=== PATIENT | female | born 1980 | race Caucasian/White ===

== ENCOUNTER → 2016-05-01 14:34 | Outpatient (CLI) | payer BC ==
[2015-09-19 05:58] VITALS: BMI 23.1
[~2016-05-01 14:34] MED LIST: CYCLOBENZAPRINE10 MG PO; FERROUS GLUCON324 MG PO; FERROUS SULFAT325 MG PO; NORCO 10/325 TA1 TA1 PO; PERCOCET 10/3251 TA1 PO; PHENERGAN25 M1 PO; PLAQUENIL200 MG PO; PREDNISONE5 MG PO; PROBIOTIC1 EAC1 PO; PROVERA2.5 MG PO; SENOKOT-S TABLE1 TAB PO; SYNTHROID50 MCG PO; VITAMIN D5000 UNIT; ZANTAC150 MG PO; ZOLOFT50 MG PO
[2016-05-06 03:06] LABS: OVA + PARASITE EXAM Final report (())
== END | disposition home or self-care (01) ==
LOC: D.LABREF 14:34
PROVIDERS: Surgery
DX: R19.7 Diarrhea, unspecified (principal)

== ENCOUNTER → 2016-06-11 12:33 | Outpatient (CLI) | payer BC ==
[2015-09-19 05:58] VITALS: BMI 23.1
== END | disposition home or self-care (01) ==
LOC: D.NM 12:33
DX: R10.9 Unspecified abdominal pain (principal); R11.0 Nausea

== ENCOUNTER 2016-06-18 05:51 | Day surgery (SDC) | payer BC ==
[~2016-06-18] VITALS: Ht 168.9 cm; Wt 63.5 kg
--- NOTE | ~2016-06-18 | OP ---
PATIENT NAME: DANIELA MEADE MEDICAL RECORD: [id number] :78 LOCATION:D.OPS ADMISSION DATE: SURGEON: VEELIO MEADE MD DATE OF OPERATION: 06/18/2016 PREOPERATIVE DIAGNOSES: 1. Biliary dyskinesia. 2. Mixed connective tissue disorder. 3. Vitamin D deficiency. 4. Hypothyroidism. POSTOPERATIVE DIAGNOSES: 1. Biliary dyskinesia. 2. Mixed connective tissue disorder. 3. Vitamin D deficiency. 4. Hypothyroidism. PROCEDURE: Single incision laparoscopic cholecystectomy. SURGEON: Evelio Meade MD. REPORT OF PROCEDURE: The patient's abdomen was prepped and draped in sterile fashion. A cutdown was made through the patient's umbilicus. Electrocautery was used to dissect through the subcutaneous tissues and fascia and I bluntly entered the abdominal cavity. Once inside, then an SILS port was inserted and the abdomen was insufflated. The gallbladder was grasped and elevated. There was no sign of inflammatory changes. The cystic duct was dissected free and this was clipped proximally and distally and ligated in standard fashion. The patient had some small vascular structures, but no large arterial structures. A couple of small vascular structures were clipped proximally and distally and ligated. The gallbladder was then taken off the liver bed using electrocautery. We irrigated out the right upper quadrant and assured there was no sign of any bleeding or bile leakage. At this point, we inspected the abdomen and saw no signs of any masses or lesions and no sign of any inflammatory changes. At this point, the gallbladder was removed. The midline fascia was closed with interrupted 0 Vicryls times. The wounds were then irrigated out with normal saline and infused with 10 mL of 0.25% Marcaine plain. The skin incisions were all closed with subcutaneous 5-0 Monocryl and dressed appropriately. COMPLICATIONS: None. CONDITION: Stable. ANESTHESIA: General endotracheal and local. BLOOD LOSS: Minimal. TRANSINT:[id number] Voice Confirmation ID: [id number] DOCUMENT ID: [id number] OPERATIVE REPORT [id number] DANIELA MEADE EVELIO MEADE MD CC: CASEY DUNCAN MD [id number] DICTATION DATE: 06/18/16 0830 FIBERGLASS AUTO BODY REPAIRER: 06/18/16 1504 [facility] 06/18/16 [place] [address]
[~2016-06-18 05:51] MED LIST changes: -PHENERGAN25 M1 PO
[2016-06-18 06:54] VITALS: BP 111/76; Ht 168.9 cm; Wt 63.5 kg
[2016-06-18 06:59] LABS: HCG URINE NEGATIVE (NEGATIVE)
[2016-06-18 07:31] LABS: CALC OSMOLALITY 276 mosm/kg (275-300); CALCIUM 8.5 mg/dL (8.5-10.1); CARBON DIOXIDE 28.3 mmol/L (21.0-32.0); CHLORIDE - SERUM 103 mmol/L (98-107); CREATININE - SERUM 0.8 mg/dL (0.6-1.3); GLUCOSE 85 mg/dL (74-106); POTASSIUM - SERUM 3.7 mmol/L (3.5-5.1); SODIUM 140 mmol/L (136-145); UREA NITROGEN 11 mg/dL (7-18); eGFR NON AFRICAN AMERICAN 85 mL/min (90-120)
[2016-06-18 07:36] LABS: HEMATOCRIT 36.4 % (36.0-48.0); HEMOGLOBIN 12.7 g/dL (12-16); MCH 29.9 pg (26.0-34.0); MCHC 34.9 g/dL (31.0-37.0); MCV 85.6 fL (80.0-100.0); PLATELET COUNT 158 10x3/uL (130-400); RBC 4.25 10x6/uL (4.00-5.40); RDW 13.1 % (11.5-14.5); WBC 7.5 10x3/uL (4.8-10.8)
--- NOTE | 2016-06-18 08:59 | NUR ---
THE PATIENT REQUESTED TO RETURN TO OUTPATIENT
[2016-06-18] MEDS ORDERED: PHENERGAN25 M1 PO (09:01)
--- NOTE | 2016-06-18 12:15 | NUR ---
1150 AWAKE TALKING WITH FAMILY & FRIENDS. TAKING SIPS OF [place] AT THIS TIME. DECLINES OFFER OF FULL LIQUID DIET @ THIS TIME. Riccardo ECHEVERRIA R.N.
--- NOTE | 2016-06-18 13:32 | NUR ---
1310 REQUESTS DISCHARGE. STATES HAS VOIDED. IV COMPLETED & DC'ED WTIH CATH INTACT. Riccardo ECHEVERRIA R.N. 1320 DRESSED, AWAKE & ALERT. GIVEN DISCHARGE INFORMATION INCLUDING: MED REC, [facility] CHOLECYSTCTOMY [place], & OP D/C INSTRUCTIONS. PT VOICED UNDERSTANDING. TO PRIVATE CAR PER WHEELCHAIR BY THIS NURSE. HOME WITH MRS. NATHALY SCHILLING. Riccardo ECHEVERRIA R.N.
== END 2016-06-18 13:20 | disposition home or self-care (01) ==
LOC: D.OPS 05:51 → D.PAN 07:30 → D.OPS 07:30
PROVIDERS: Surgery
DX: K82.8 Other specified diseases of gallbladder (principal); K21.9 Gastro-esophageal reflux disease without esophagitis; E03.9 Hypothyroidism, unspecified; E55.9 Vitamin D deficiency, unspecified

== ENCOUNTER → 2016-10-04 10:25 | Outpatient (CLI) | payer BC ==
[2016-06-18 06:54] VITALS: BMI 22.3
[~2016-10-04 10:25] MED LIST changes: +PHENERGAN25 M1 PO
== END | disposition home or self-care (01) ==
LOC: D.LAB 10:25
DX: K21.9 Gastro-esophageal reflux disease without esophagitis (principal); K82.8 Other specified diseases of gallbladder; R10.9 Unspecified abdominal pain; R19.7 Diarrhea, unspecified

== ENCOUNTER → 2016-11-22 10:54 | Outpatient (CLI) | payer BC ==
[2016-06-18 06:54] VITALS: BMI 22.3
== END | disposition home or self-care (01) ==
LOC: D.MRI 11-19 10:00
DX: M25.561 Pain in right knee (principal)

== ENCOUNTER → 2016-12-03 08:08 | Outpatient (CLI) | payer BC ==
[2016-06-18 06:54] VITALS: BMI 22.3
[2016-12-03 09:32] LABS: APPEARANCE CLEAR (CLEAR); BILIRUBIN NEGATIVE (NEGATIVE); COLOR YELLOW (YELLOW); GLUCOSE NEGATIVE (NEGATIVE); KETONE NEGATIVE (NEGATIVE); LEUKOCYTE ESTERASE NEGATIVE (NEGATIVE); NITRITE NEGATIVE (NEGATIVE); PROTEIN NEGATIVE (NEGATIVE); SPECIFIC GRAVITY 1.015 (1.005-1.020); UROBILINOGEN NORMAL (NORMAL)
[2016-12-03 09:38] LABS: BASOPHILS 0.8 % (0-2); HEMATOCRIT 37.6 % (36.0-48.0); IMMATURE GRANULOCYTES 0.3 % (0-5); LYMPHOCYTES 30.6 % (15-50); MCHC 34.6 g/dL (31.0-37.0); MCV 89.5 fL (80.0-100.0); MEAN PLATELET VOLUME 11.4 fL (7.4-10.4); MONOCYTES 8.9 % (2-11); NEUTROPHILS 56.4 % (40-80); PLATELET COUNT 181 10x3/uL (130-400); RDW 13.1 % (11.5-14.5); WBC 3.7 10x3/uL (4.8-10.8)
[2016-12-03 09:58] LABS: APTT 29.2 SECONDS (22.8-39.4); INR 1.03 (0.85-1.17); PROTIME 13.4 SECONDS (11.6-15.0)
[2016-12-03 10:34] LABS: ERYTHROCYTE SEDIMENTATION RATE 5 mm/hr (0-20)
== END | disposition home or self-care (01) ==
LOC: D.LAB 08:08
PROVIDERS: Internal Medicine Rheumatology
DX: R58 Hemorrhage, not elsewhere classified (principal); R53.82 Chronic fatigue, unspecified; M35.9 Systemic involvement of connective tissue, unspecified; M25.60 Stiffness of unspecified joint, not elsewhere classified; M25.9 Joint disorder, unspecified; D68.9 Coagulation defect, unspecified; M05.9 Rheumatoid arthritis with rheumatoid factor, unspecified

== ENCOUNTER → 2017-07-28 14:19 | Outpatient (CLI) | payer BC ==
[2016-06-18 06:54] VITALS: BMI 22.3
== END | disposition home or self-care (01) ==
LOC: D.MRI 11:00
DX: M25.422 Effusion, left elbow (principal)

== ENCOUNTER 2017-09-23 10:17 | Day surgery (SDC) | payer BC ==
[~2017-09-23] VITALS: Ht 168.9 cm; Wt 63.6 kg
--- NOTE | ~2017-09-23 | OP ---
PATIENT NAME: DANIELA MEADE MEDICAL RECORD: [id number] :78 LOCATION:[facility] ADMISSION DATE: SURGEON: RADHA DIEZ MD DATE OF OPERATION: 09/23/2017 REFERRING PHYSICIAN: Casey Duncan MD PROCEDURES: EGD with biopsy. INDICATIONS: Ms. Meade is a delightful 37-year-old woman with a history of lupus who has had recurrent symptoms of fullness in her upper esophagus/chest with she had been taking proton pump inhibitor and Zantac, and is now just taking Zantac with good control of her symptoms. She has had no associated nausea, vomiting, hematemesis, melena or hematochezia. She has a history of antral biopsies, were positive for presence of Helicobacter pylori, treated several times in the past, second time with sensitivities obtained for a thorough treatment. She presents for outpatient EGD. PREMEDICATIONS: Total IV anesthesia (propofol 300 mg, tranexamic acid 10 mg per kilogram IV) (history of YONATHAN-1 deficiency). PROCEDURE AND FINDINGS: After receiving informed consent, Ms. Meade's posterior pharynx was anesthetized with Cetacaine spray. She was placed in left lateral decubitus position and sedated as per anesthesia. After achieving an adequate level of sedation, gastroscope was introduced per orally and advanced into the duodenum without difficulty. The esophageal mucosa was without erythema, ulcers, strictures or masses. Biopsies were taken from the mid and distal esophagus to rule out eosinophilic esophagitis and evidence of reflux esophagitis. A small sliding type hiatal hernia was present. Gastric mucosa was notable for a small patch of erythema and the body of the stomach (biopsied) and mild diffuse erythema involving the antrum and antral biopsies were obtained. No lesions were seen along the incisura, the cardia, fundus. Pylorus was patent and competent. Duodenal mucosa was without erythema or ulcers, appeared normal through the second portion. Gastroscope was then withdrawn. Ms. Meade tolerated procedure well. No immediate complications. ASSESSMENT: 1. Small sliding type hiatal hernia. 2. Mild patchy gastritis. RECOMMENDATIONS: 1. Follow up histopathology. 2. Limit use of nonsteroidal anti-inflammatory drugs. 3. Continue ranitidine/Zantac 150 mg twice a day. TRANSINT:[id number] Voice Confirmation ID: [id number] DOCUMENT ID: [id number] OPERATIVE REPORT [id number] DANIELA MEADE TERRI MD at 1206 CC: CASEY DUNCAN [id number] DICTATION DATE: 09/23/17 1405 PELLET PREPARATION OPERATOR: 09/23/17 1435 [facility] 09/23/17 [place] [id number] [place] [id number]
[2017-09-23 10:45] LABS: BASOPHILS 0.3 % (0-2); HEMOGLOBIN 13.7 g/dL (12-16); LYMPHOCYTES 32.9 % (15-50); MCH 31.1 pg (26.0-34.0); MCHC 35.1 g/dL (31.0-37.0); MCV 88.6 fL (80.0-100.0); MEAN PLATELET VOLUME 10.6 fL (7.4-10.4); MONOCYTES 10.2 % (2-11); NEUTROPHILS 53.6 % (40-80); PLATELET COUNT 163 10x3/uL (130-400); RDW 12.4 % (11.5-14.5); WBC 3.6 10x3/uL (4.8-10.8)
[2017-09-23] MEDS ORDERED: JOLIVETTE0.35 MG PO (11:02)
[2017-09-23] MEDS ORDERED: ARMOUR THYROID30 MG PO (11:03)
[2017-09-23 11:10] VITALS: BP 116/72; Ht 168.9 cm; Wt 63.6 kg
[2017-09-23 12:38] LABS: HCG URINE NEGATIVE (NEGATIVE)
== END 2017-09-23 14:45 | disposition home or self-care (01) ==
LOC: D.OPS 10:17
PROVIDERS: Anesthesiology; Internal Medicine Gastroenterology
DX: K44.9 Diaphragmatic hernia without obstruction or gangrene (principal); K29.50 Unspecified chronic gastritis without bleeding; K21.0 Gastro-esophageal reflux disease with esophagitis; M32.9 Systemic lupus erythematosus, unspecified; Z01.812 Encounter for preprocedural laboratory examination

== ENCOUNTER → 2017-11-22 19:08 | Outpatient (CLI) | payer BC ==
[2017-09-23 11:10] VITALS: BMI 22.3
[~2017-11-22 19:08] MED LIST changes: +ARMOUR THYROID30 MG PO; +JOLIVETTE0.35 MG PO
[2017-11-22 19:21] LABS: BASOPHILS 0.3 % (0-2); EOSINOPHILS 0.7 % (0-7); HEMATOCRIT 37.8 % (36.0-48.0); HEMOGLOBIN 13.3 g/dL (12-16); IMMATURE GRANULOCYTES 0.3 % (0-5); LYMPHOCYTES 17.1 % (15-50); MCH 31.5 pg (26.0-34.0); MCHC 35.2 g/dL (31.0-37.0); MCV 89.6 fL (80.0-100.0); MONOCYTES 7.8 % (2-11); NEUTROPHILS 73.8 % (40-80); PLATELET COUNT 197 10x3/uL (130-400); RBC 4.22 10x6/uL (4.00-5.40); RDW 12.7 % (11.5-14.5); WBC 6.8 10x3/uL (4.8-10.8)
[2017-11-22 19:32] LABS: CALC OSMOLALITY 280 mosm/kg (275-300); CALCIUM 8.7 mg/dL (8.5-10.1); CARBON DIOXIDE 27.8 mmol/L (21.0-32.0); CHLORIDE - SERUM 103 mmol/L (98-107); CREATININE - SERUM 0.8 mg/dL (0.6-1.3); GLUCOSE 113 mg/dL (74-106); PHOSPHOROUS 3.7 mg/dL (2.5-4.9); POTASSIUM - SERUM 3.6 mmol/L (3.5-5.1); SODIUM 141 mmol/L (136-145); UREA NITROGEN 10 mg/dL (7-18); eGFR NON AFRICAN AMERICAN 85 mL/min (90-120)
== END | disposition home or self-care (01) ==
LOC: D.LABREF 19:08
PROVIDERS: Surgery
DX: R00.0 Tachycardia, unspecified (principal)

== ENCOUNTER → 2017-12-31 18:13 | Outpatient (CLI) | payer BC ==
[2017-09-23 11:10] VITALS: BMI 22.3
== END | disposition home or self-care (01) ==
LOC: D.MAMMO 11:30 → D.US 13:00 → D.MAMMO 18:13
DX: N64.4 Mastodynia (principal); R92.8 Other abnormal and inconclusive findings on diagnostic imaging of breast

== ENCOUNTER → 2018-03-18 07:01 | Outpatient (CLI) | payer BC ==
[2017-09-23 11:10] VITALS: BMI 22.3
== END | disposition home or self-care (01) ==
LOC: D.MRI 07:00
DX: M25.551 Pain in right hip (principal)

== ENCOUNTER 2018-07-06 08:00 | Outpatient (CLI) | payer BC ==
[2017-09-23 11:10] VITALS: BMI 22.3
== END 2018-07-06 09:00 | disposition home or self-care (01) ==
LOC: D.MAMMO 08:00
PROVIDERS: ATTEND Family Medicine
DX: D24.9 Benign neoplasm of unspecified breast (principal)

== ENCOUNTER → 2018-07-27 09:48 | Outpatient (CLI) | payer BC ==
[2017-09-23 11:10] VITALS: BMI 22.3
== END | disposition home or self-care (01) ==
LOC: D.MRI 09:48
PROVIDERS: ATTEND Family Medicine
DX: M54.5 Low back pain (principal)

== ENCOUNTER → 2018-11-21 14:28 | Outpatient (CLI) | payer BC ==
[2017-09-23 11:10] VITALS: BMI 22.3
[2018-11-21 14:43] LABS: BASOPHILS 0.1 % (0-2); EOSINOPHILS 0.7 % (0-7); HEMATOCRIT 37.7 % (36.0-48.0); HEMOGLOBIN 13.4 g/dL (12-16); IMMATURE GRANULOCYTES 0.1 % (0-5); LYMPHOCYTES 18.7 % (15-50); MCH 31.3 pg (26.0-34.0); MCHC 35.5 g/dL (31.0-37.0); MCV 88.1 fL (80.0-100.0); MEAN PLATELET VOLUME 10.5 fL (7.4-10.4); MONOCYTES 5.8 % (2-11); NEUTROPHILS 74.6 % (40-80); PLATELET COUNT 189 10x3/uL (130-400); RBC 4.28 10x6/uL (4.00-5.40); RDW 12.6 % (11.5-14.5); WBC 6.8 10x3/uL (4.8-10.8)
[2018-11-21 15:00] LABS: ALBUMIN 3.8 g/dL (3.4-5.0); ALKALINE PHOSPHATASE 42 U/L (46-116); ALT (SGPT) 22 U/L (10-68); BILIRUBIN - TOTAL 0.43 mg/dL (0.2-1.3); CALC OSMOLALITY 280 mosm/kg (275-300); CALCIUM 8.4 mg/dL (8.5-10.1); CARBON DIOXIDE 28.9 mmol/L (21.0-32.0); CHLORIDE - SERUM 106 mmol/L (98-107); CREATININE - SERUM 0.8 mg/dL (0.6-1.3); GLUCOSE 132 mg/dL (74-106); POTASSIUM - SERUM 3.6 mmol/L (3.5-5.1); SODIUM 140 mmol/L (136-145); THYROID STIMULATING HORMONE 0.85 uIU/mL (0.36-3.74); UREA NITROGEN 12 mg/dL (7-18); eGFR NON AFRICAN AMERICAN 84 mL/min (90-120)
== END | disposition home or self-care (01) ==
LOC: D.LABREF 14:28
PROVIDERS: ATTEND Surgery
DX: R42 Dizziness and giddiness (principal); R61 Generalized hyperhidrosis

== ENCOUNTER 2019-04-05 11:39 | Day surgery (SDC) | payer BC ==
[~2019-04-05] VITALS: Ht 168.9 cm; Wt 61.4 kg
[2019-04-05 12:09] LABS: BASOPHILS 0.4 % (0-2); HEMATOCRIT 40.1 % (36.0-48.0); HEMOGLOBIN 14.2 g/dL (12-16); IMMATURE GRANULOCYTES 0.2 % (0-5); LYMPHOCYTES 28.2 % (15-50); MCH 31.1 pg (26.0-34.0); MCHC 35.4 g/dL (31.0-37.0); MCV 87.9 fL (80.0-100.0); MEAN PLATELET VOLUME 10.4 fL (7.4-10.4); MONOCYTES 9.8 % (2-11); NEUTROPHILS 60.4 % (40-80); PLATELET COUNT 185 10x3/uL (130-400); RBC 4.56 10x6/uL (4.00-5.40); WBC 4.8 10x3/uL (4.8-10.8)
[2019-04-05 12:18] LABS: CALC OSMOLALITY 281 mosm/kg (275-300); CHLORIDE - SERUM 104 mmol/L (98-107); CREATININE - SERUM 0.8 mg/dL (0.6-1.3); GLUCOSE 95 mg/dL (74-106); POTASSIUM - SERUM 4.3 mmol/L (3.5-5.1); SODIUM 141 mmol/L (136-145); UREA NITROGEN 16 mg/dL (7-18); eGFR NON AFRICAN AMERICAN 84 mL/min (90-120)
[2019-04-05 12:22] LABS: HCG SERUM NEGATIVE (NEGATIVE)
[2019-04-05] MEDS ORDERED: PEPCID AC20 MG PO (12:26)
[2019-04-05 12:31] VITALS: Ht 168.9 cm; Wt 61.4 kg
[2019-04-05] MEDS ORDERED: JENCYCLA PO (12:47)
[2019-04-05] MEDS ORDERED: HYDROXYCHLOROQUINE (12:48)
--- NOTE | 2019-04-05 14:36 | NUR ---
1410 IV DC'D. CATHETER TIP INTACT. NO BLEEDING AT SITE AFTER HOLDING PRESSURE. BANDAID APPLIED.
--- NOTE | 2019-04-06 11:35 | OP ---
PATIENT NAME: DANIELA MEADE MEDICAL RECORD: [id number] :78 LOCATION:[facility] ADMISSION DATE: SURGEON: SHERWIN MELGOZA DO DATE OF OPERATION: 04/05/2019 PROCEDURE: EGD with biopsies. INDICATIONS FOR PROCEDURE: Nausea and a history of recurrent H. pylori infection. SCOPE: Olympus video gastroscope. MEDICATIONS: Propofol 250 mg IV and TXA 625 mg IV prior to procedure. COMPLICATIONS: None. FINDINGS: Informed consent was given. The patient was made comfortable with the above medication. After reaching an adequate level of sedation by slow IV push, the patient was placed on her left side. The endoscope was advanced under direct visualization through the mouth to the second portion of the duodenum with ease. The entire esophagus appeared normal. Cold forceps biopsies were taken from the mid esophagus to rule out the presence of eosinophils. At the GE junction, the Z-line appeared smooth without breaks in the mucosa. The endoscope was advanced beyond the GE junction into the stomach and retroflexed to view the cardia and fundus, which appeared normal. The body of the stomach appeared normal. In the antrum and prepyloric region, there was some erythema and perhaps some granularity consistent with mild gastritis. Cold forceps biopsies were taken from the antrum and a second set of biopsies were taken from the fundus of the stomach. They will be submitted for histopathology and to rule out the presence of H. pylori. The endoscope was advanced beyond the pylorus into the duodenum, which appeared normal to the second portion. Random cold forceps biopsies were taken from the bulb and second portion of the duodenum. The endoscope was withdrawn from the patient. The patient tolerated the procedure well and there were no complications. IMPRESSION: Mild antral gastritis. Otherwise, normal upper endoscopy. PLAN AND RECOMMENDATIONS: 1. Discharge home when recovery parameters are met. 2. Follow up biopsy specimen results. 3. Recommend smaller frequent meals for nausea symptoms. 4. Consider a gastric emptying scan if continued nausea to rule out gastroparesis as a cause. 5. Consider switching antacid therapy from Pepcid to a proton pump inhibitor for a short period to see if this helps symptoms. 6. Follow up in GI clinic as needed for symptoms if they continue. TRANSINT:[id number] Voice Confirmation ID: [id number] DOCUMENT ID: [id number] OPERATIVE REPORT [id number] DANIELA MEADESHERWIN QUINN DO at 1135 CC: [id number] DICTATION DATE: 04/05/19 1336 MAIL ORDER CLERK: 04/05/19 1839 [facility] 04/05/19 [place] [id number] [place] [address]
--- NOTE | 2019-04-06 11:38 | OP ---
PATIENT NAME: DANIELA MEADE MEDICAL RECORD: [id number] :78 LOCATION:[facility] ADMISSION DATE: SURGEON: SHERWIN MELGOZA DO Error entry. See other report for EGD from 04/05/19 SHERWIN MELGOZA DO at 1138 CC: [id number] DICTATION DATE: 04/05/19 1331 [employer] DRIVER: 04/05/19 1832 [facility] 04/05/19 [place] [id number] [place] [address]
== END 2019-04-05 14:29 | disposition home or self-care (01) ==
LOC: D.OPS 11:39
PROVIDERS: Anesthesiology; ATTEND Internal Medicine Gastroenterology
DX: R11.0 Nausea (principal); E07.9 Disorder of thyroid, unspecified; Z86.19 Personal history of other infectious and parasitic diseases

== ENCOUNTER → 2019-06-24 11:34 | Outpatient (CLI) | payer BC ==
[2019-04-05 12:31] VITALS: BMI 21.5
[~2019-06-24 11:34] MED LIST changes: +HYDROXYCHLOROQUINE; +JENCYCLA PO; +PEPCID AC20 MG PO
== END | disposition home or self-care (01) ==
LOC: D.CT 11:30
PROVIDERS: ATTEND Family Medicine
DX: R06.00 Dyspnea, unspecified (principal)

== ENCOUNTER → 2019-08-18 10:19 | Outpatient (CLI) | payer BC ==
[2019-04-05 12:31] VITALS: BMI 21.5
[2019-08-18 11:15] LABS: BASOPHILS 0.5 % (0-2); EOSINOPHILS 2.1 % (0-7); HEMATOCRIT 39.7 % (36.0-48.0); HEMOGLOBIN 13.2 g/dL (12-16); IMMATURE GRANULOCYTES 0.2 % (0-5); LYMPHOCYTES 26.4 % (15-50); MCH 29.7 pg (26.0-34.0); MCHC 33.2 g/dL (31.0-37.0); MCV 89.2 fL (80.0-100.0); MEAN PLATELET VOLUME 10.5 fL (7.4-10.4); MONOCYTES 9.3 % (2-11); NEUTROPHILS 61.5 % (40-80); PLATELET COUNT 192 10x3/uL (130-400); RBC 4.45 10x6/uL (4.00-5.40); RDW 13.7 % (11.5-14.5); WBC 4.2 10x3/uL (4.8-10.8)
[2019-08-18 11:26] LABS: SPECIFIC GRAVITY 1.015 (1.005-1.020)
[2019-08-18 11:26] LABS: APTT 28.9 SECONDS (22.8-39.4); INR 1.04 (0.85-1.17); PROTIME 13.5 SECONDS (11.6-15.0)
[2019-08-18 11:27] LABS: BILIRUBIN NEGATIVE (NEGATIVE); GLUCOSE NEGATIVE (NEGATIVE); KETONE NEGATIVE (NEGATIVE); NITRITE NEGATIVE (NEGATIVE); UROBILINOGEN NORMAL (NORMAL)
[2019-08-18 13:19] LABS: ERYTHROCYTE SEDIMENTATION RATE 5 mm/hr (0-20)
== END | disposition home or self-care (01) ==
LOC: D.LAB 10:19
PROVIDERS: ATTEND Internal Medicine Rheumatology
DX: R53.82 Chronic fatigue, unspecified (principal); M35.9 Systemic involvement of connective tissue, unspecified; M25.60 Stiffness of unspecified joint, not elsewhere classified; M25.9 Joint disorder, unspecified; D68.9 Coagulation defect, unspecified; M05.9 Rheumatoid arthritis with rheumatoid factor, unspecified

== ENCOUNTER → 2019-11-09 08:18 | Outpatient (CLI) | payer BC ==
[2019-04-05 12:31] VITALS: BMI 21.5
== END | disposition home or self-care (01) ==
LOC: D.MAMMO 08:18
PROVIDERS: ATTEND Family Medicine
DX: Z12.31 Encounter for screening mammogram for malignant neoplasm of breast (principal)

== ENCOUNTER 2019-11-18 11:00 | Outpatient (CLI) | payer BC ==
[2019-04-05 12:31] VITALS: BMI 21.5
== END 2019-11-18 14:30 | disposition home or self-care (01) ==
LOC: D.MAMMO 11:00
PROVIDERS: ATTEND Family Medicine
DX: R92.8 Other abnormal and inconclusive findings on diagnostic imaging of breast (principal)

== ENCOUNTER 2020-07-31 08:28 | Day surgery (SDC) | payer BC ==
[~2020-07-31] VITALS: Ht 170.2 cm; Wt 65.9 kg
[2020-07-31 09:10] LABS: BASOPHILS 0.8 % (0-2); EOSINOPHILS 0.8 % (0-7); HEMATOCRIT 40.5 % (36.0-48.0); HEMOGLOBIN 13.8 g/dL (12-16); LYMPHOCYTES 16.7 % (15-50); MCH 29.9 pg (26.0-34.0); MCHC 34.1 g/dL (31.0-37.0); MCV 87.6 fL (80.0-100.0); MEAN PLATELET VOLUME 8.4 fL (7.4-10.4); MONOCYTES 6.1 % (2-11); NEUTROPHILS 75.6 % (40-80); PLATELET COUNT 215 10x3/uL (130-400); RBC 4.63 10x6/uL (4.00-5.40); RDW 12.9 % (11.5-14.5)
[2020-07-31] MEDS ORDERED: OMEPRAZOLE20 M1 PO (09:21)
[2020-07-31 09:27] VITALS: Ht 170.2 cm; Wt 65.9 kg
[2020-07-31 09:27] LABS: ALBUMIN 4.2 g/dL (3.4-5.0); ALKALINE PHOSPHATASE 54 U/L (30-120); ALT (SGPT) 33 U/L (10-68); BILIRUBIN - TOTAL 0.45 mg/dL (0.2-1.3); CALC OSMOLALITY 287 mosm/kg (275-300); CARBON DIOXIDE 27.7 mmol/L (21.0-32.0); CHLORIDE - SERUM 109 mmol/L (98-107); CREATININE - SERUM 0.7 mg/dL (0.6-1.3); GLUCOSE 107 mg/dL (74-106); POTASSIUM - SERUM 4.4 mmol/L (3.5-5.1); PROTEIN - SERUM 7.5 g/dL (6.4-8.2); SODIUM 145 mmol/L (136-145); UREA NITROGEN 10 mg/dL (7-18); eGFR NON AFRICAN AMERICAN > 90 mL/min (90-120)
[2020-07-31 09:41] LABS: APTT 26.9 SECONDS (22.8-39.4); INR 1.13 (0.85-1.17); PROTIME 13.4 SECONDS (11.6-15.0)
[2020-07-31 09:57] LABS: HCG URINE NEGATIVE (NEGATIVE)
[2020-07-31 10:05] LABS: BILIRUBIN NEGATIVE (NEGATIVE); KETONE NEGATIVE (NEGATIVE); NITRITE NEGATIVE (NEGATIVE); UROBILINOGEN NORMAL mg/dL (< 2)
--- NOTE | 2020-07-31 14:12 | NUR ---
1240 - IV D/C'D WITH TIP INTACT. UP TO DRESS. DISCHARGE INSTRUCTIONS GIVEN.
--- NOTE | 2020-07-31 14:13 | NUR ---
1255 - DISCHARGED VIA WHEELCHAIR TO PRIVATE CAR.
--- NOTE | 2020-08-02 06:46 | OP ---
PATIENT NAME: DANIELA MEADE MEDICAL RECORD: [id number] :76 [facility] DATE: SURGEON: SHERWIN MELGOZA DO DATE OF OPERATION: 07/31/2020 PROCEDURE: Colonoscopy. INDICATION FOR PROCEDURE: History of colon polyps. This is a 5-year recall. SCOPE: SignNow video pediatric colonoscope. MEDICATIONS: Propofol 800 mg IV per anesthesia. WITHDRAWAL TIME: 11 minutes. ESTIMATED BLOOD LOSS: None. COMPLICATIONS: None. FINDINGS: Informed consent was given. The patient was made comfortable with the above medication. After reaching an adequate level of sedation by slow IV push, the patient was placed on her left side. A digital rectal examination was performed and it was normal. The endoscope was advanced under direct visualization through the rectum to the cecum and into the terminal ileum. The endoscope was slowly withdrawn and the mucosa was carefully examined. The prep quality was excellent. There were no polyps visualized on today's examination. No diverticula were seen. Retroflexion was performed in the rectum with visualization of grade I internal hemorrhoids without bleeding. The endoscope was withdrawn from the patient. The patient tolerated the procedure well and there were no complications. IMPRESSION: 1. Grade I internal hemorrhoids without bleeding. 2. Otherwise, normal colonoscopy to cecum and terminal ileum. PLAN AND RECOMMENDATIONS: 1. Discharge home when recovery parameters are met. 2. High fiber diet. 3. Continue current medications. 4. Recall colonoscopy in 5 years based on a history of polyps. TRANSINT:[id number] Voice Confirmation ID: [id number] DOCUMENT ID: [id number] SHERWIN MELGOZA DO at 0646 CC: [id number] DICTATION DATE: 07/31/20 1128 POWER DIGGER OPERATOR: 08/02/20 0003 [facility] 07/31/20 [place] [id number]
== END 2020-07-31 12:55 | disposition home or self-care (01) ==
LOC: D.OPS 08:28
PROVIDERS: Anesthesiology; ATTEND Internal Medicine Gastroenterology
DX: Z86.010 Personal history of colon polyps (principal); K64.0 First degree hemorrhoids